=== PATIENT | male | born 1960 | race Caucasian/White ===

== ENCOUNTER 2020-11-18 07:51 | Outpatient (RCR) | payer BC, SELFPAY ==
[2020-11-20 10:13] LABS: MANUAL DIFF FLAG NO
[2020-11-20 10:24] LABS: Basophils Percent Auto 0.2 % (0-2); Eosinophils Absolute Auto 0.1 X10*3/uL (0.0-0.4); Eosinophils Percent Auto 1.5 % (0-4); Hematocrit 32.9 % (42-52); Hemoglobin 10.9 g/dl (14.0-18.0); Imm Gran Abs Auto 0.02 X10*3/uL (0.00-0.03); Imm Gran Pct Auto 0.3 % (0.0-0.4); Lymphocytes Absolute Auto 2.1 X10*3/uL (1.2-4.9); Lymphocytes Percent Auto 31.9 % (20-40); Mean Corpuscular HGB Conc 33.1 g/dl (31.0-36.0); Mean Corpuscular Hemoglobin 29.1 pg (27.0-33.0); Mean Platelet Volume 11.4 fL (9.4-12.4); Monocytes Absolute Auto 0.5 X10*3/uL (0.1-1.2); Monocytes Percent Auto 8.2 % (2-11); Neutrophils Absolute Auto 3.8 X10*3/uL (2.0-8.3); Neutrophils Percent Auto 57.9 % (45-73); Platelet Count 137 X10*3/uL (160-400); Red Blood Count 3.74 X10*6/uL (4.60-5.80); Red Cell Distribution Width 13.5 % (11.0-16.0); White Blood Count 6.6 X10*3/uL (4.8-10.8)
[2020-11-20 10:31] LABS: Estimated Average Glucose 160 mg/dL; Hemoglobin A1c % 7.2 %
[2020-11-20 10:59] LABS: Anion Gap 13 (12-20); Blood Urea Nitrogen 28 mg/dL (9-16); C Reactive Protein 0.17 mg/dL (< or = 0.50); Calcium 9.4 mg/dL (8.4-10.2); Carbon Dioxide 26 mmol/L (22-29); Chloride 105 mmol/L (96-108); Estimated Glomerular Filt Rate 44; Glucose Random 204 mg/dL (60-115); Potassium 4.7 mmol/L (3.3-5.1); Sodium 139 mmol/L (135-145)
[2020-11-20 11:16] LABS: Erythrocyte Sedimentation Rate 51 MM/HR (0-15)
== END 2020-12-26 12:14 | disposition home or self-care (01) ==
LOC: HO.WCC 07:51
PROVIDERS: Absent Provider Surgery; PCP Internal Medicine; Visit Provider Physician Assistant
DX: E10.621 Type 1 diabetes mellitus with foot ulcer (principal); L97.522 Non-pressure chronic ulcer of other part of left foot with fat layer exposed; E10.40 Type 1 diabetes mellitus with diabetic neuropathy, unspecified; E10.69 Type 1 diabetes mellitus with other specified complication; M86.472 Chronic osteomyelitis with draining sinus, left ankle and foot; I73.9 Peripheral vascular disease, unspecified; L53.9 Erythematous condition, unspecified; I10 Essential (primary) hypertension; Z87.891 Personal history of nicotine dependence; Z79.2 Long term (current) use of antibiotics; Z89.412 Acquired absence of left great toe
CPT/HCPCS: 11042; 36415; 80048; 83036; 84134; 85025; 85652; 86140; 99212

== ENCOUNTER 2020-12-01 07:56 | Outpatient (REF) | payer BC, SELFPAY ==
--- NOTE | ~2020-12-01 | MR_ITS ---
EXAMINATION: MRI FOOT WITHOUT AND WITH CONTRAST, LEFT CLINICAL INFORMATION: Nonpressure chronic ulcer, nonhealing wound. Patient reports nonhealing wound left 2nd digit, history of diabetes, great toe amputation 6 years ago. COMPARISON: None. TECHNIQUE: MRI of the left foot was performed before and after the intravenous administration of 10 mL of Gadavist on a high-field scanner. Motion artifact on multiple sequences degrade the images. FINDINGS: There is a focal area of skin irregularity/ulceration in the plantar aspect of the distal 2nd toe. There is diffuse underlying soft tissue edema and enhancement. There is no discrete fluid collection. Most of the distal phalanx of the 2nd toe is destroyed except for a small residual base. The base demonstrates low-T1 and low-T2 signal intensity consistent with sclerosis. There is no bone marrow edema in the 2nd proximal and middle phalanges. There has been prior resection of the great toe. There is diffuse fatty atrophy and some patchy edema involving the foot muscles, nonspecific, but a common finding in diabetic feet. MR/MR foot LT wo/w con IMPRESSION: Focal ulcer in the plantar aspect of the distal 2nd toe. Diffuse subcutaneous edema and enhancement involving the 2nd toe. Destruction of most of the 2nd distal phalanx with a residual small sclerotic base. This could be related to chronic osteomyelitis. There is no apparent bone marrow edema to suggest acute osteomyelitis.
== END 2020-12-01 07:57 | disposition home or self-care (01) ==
LOC: HO.MRI 07:56
PROVIDERS: PCP Internal Medicine; Visit Provider Surgery
DX: L97.522 Non-pressure chronic ulcer of other part of left foot with fat layer exposed (principal)
CPT/HCPCS: 73720; A9585

== ENCOUNTER → 2020-12-10 14:45 | Outpatient (BNVA) | payer BC, SELFPAY | PROVIDERS: Visit Provider Internal Medicine ==

== ENCOUNTER → 2020-12-16 10:53 | Outpatient (BNVA) | payer BC, SELFPAY | PROVIDERS: PCP Internal Medicine; Visit Provider Surgery Vascular Surgery ==

== ENCOUNTER 2020-12-16 11:36 | Outpatient (REF) | payer BC, SELFPAY ==
--- NOTE | ~2020-12-16 | US_ITS ---
EXAMINATION: US NONINVASIVE ASSESSMENT OF THE ARTERIES OF BOTH LOWER EXTREMITIES US HALEY COMPLETE Yfn Rizo MD CLINICAL INFORMATION: Peripheral vascular disease. TECHNIQUE: Bilateral lower extremity duplex ultrasound was performed with velocity measurements and waveform analysis in the common femoral arteries, profunda femoris arteries, proximal mid and distal superficial femoral arteries, popliteal arteries and tibial vessels. In addition, ankle-brachial indices were calculated bilaterally. This study was performed only at rest. COMPARISON: None FINDINGS: Velocities in cm/sec and phasicity as well as the presence of plaque are reported below. RIGHT LEG: HALEY: 0.77 A large amount of plaque is present in the common femoral and profunda origins consistent with tight stenoses as evidenced by elevated velocities below. Plaque noted throughout the SFA and popliteal also consistent with stenoses in areas with marked velocity elevation below. Multiphasic flow noted throughout with the exception of posterior tibial artery with monophasic flow. Common Femoral: 294 Profunda Femoris: 295 Proximal SFA: 201 Mid SFA: 96 Distal SFA: 342 Popliteal: 177 Tibial: 90 LEFT LEG: HALEY: 0.56 Plaque present in the common femoral artery with stenosis as evidenced by elevated velocities. SFA plaque is seen with the largest area of velocity elevation seen distally at 369 cm/s consistent with a stenosis. Multiphasic flow present throughout. Common Femoral: 244 Profunda Femoris: 204 Proximal SFA: 165 Mid SFA: 56 Distal SFA: 369 Popliteal: 135 Tibial: 66 US/US HALEY complete IMPRESSION: There is evidence of peripheral vascular disease bilaterally with decreased ABIs, more marked on the right. Multifocal areas of stenosis are present bilaterally in the common femoral arteries and profunda femoris arteries as well as the SFA and popliteal.
--- NOTE | ~2020-12-16 | US_ITS ---
EXAMINATION: US NONINVASIVE ASSESSMENT OF THE ARTERIES OF BOTH LOWER EXTREMITIES US HALEY COMPLETE Yfn Rizo MD CLINICAL INFORMATION: Peripheral vascular disease. TECHNIQUE: Bilateral lower extremity duplex ultrasound was performed with velocity measurements and waveform analysis in the common femoral arteries, profunda femoris arteries, proximal mid and distal superficial femoral arteries, popliteal arteries and tibial vessels. In addition, ankle-brachial indices were calculated bilaterally. This study was performed only at rest. COMPARISON: None FINDINGS: Velocities in cm/sec and phasicity as well as the presence of plaque are reported below. RIGHT LEG: HALEY: 0.77 A large amount of plaque is present in the common femoral and profunda origins consistent with tight stenoses as evidenced by elevated velocities below. Plaque noted throughout the SFA and popliteal also consistent with stenoses in areas with marked velocity elevation below. Multiphasic flow noted throughout with the exception of posterior tibial artery with monophasic flow. Common Femoral: 294 Profunda Femoris: 295 Proximal SFA: 201 Mid SFA: 96 Distal SFA: 342 Popliteal: 177 Tibial: 90 LEFT LEG: HALEY: 0.56 Plaque present in the common femoral artery with stenosis as evidenced by elevated velocities. SFA plaque is seen with the largest area of velocity elevation seen distally at 369 cm/s consistent with a stenosis. Multiphasic flow present throughout. Common Femoral: 244 Profunda Femoris: 204 Proximal SFA: 165 Mid SFA: 56 Distal SFA: 369 Popliteal: 135 Tibial: 66 US/US arterial duplex LE BI IMPRESSION: There is evidence of peripheral vascular disease bilaterally with decreased ABIs, more marked on the right. Multifocal areas of stenosis are present bilaterally in the common femoral arteries and profunda femoris arteries as well as the SFA and popliteal.
== END 2020-12-16 11:37 | disposition home or self-care (01) ==
LOC: HO.US 11:36
PROVIDERS: PCP Internal Medicine; Visit Provider Surgery Vascular Surgery
DX: I73.9 Peripheral vascular disease, unspecified (principal); L97.529 Non-pressure chronic ulcer of other part of left foot with unspecified severity
CPT/HCPCS: 93923; 93925

== ENCOUNTER → 2020-12-23 08:48 | Outpatient (BNVA) | payer BC, SELFPAY | PROVIDERS: PCP Internal Medicine; Visit Provider Surgery Vascular Surgery ==

== ENCOUNTER 2020-12-24 06:00 | Day surgery (SDC) | payer BC, SELFPAY ==
[2020-12-24] VITALS (9 sets, daily range): BP systolic 120–153; BP diastolic 51–65; PULSE 46–49; RESP 17–18; TEMP 36.6–36.9; O2SAT 94–98; BMI 34.2
[2020-12-24 06:34] LABS: MANUAL DIFF FLAG NO
[2020-12-24 06:52] LABS: Basophils Percent Auto 0.2 % (0-2); Eosinophils Absolute Auto 0.2 X10*3/uL (0.0-0.4); Eosinophils Percent Auto 2.9 % (0-4); Hematocrit 35.7 % (42-52); Hemoglobin 11.6 g/dl (14.0-18.0); Imm Gran Abs Auto 0.02 X10*3/uL (0.00-0.03); Imm Gran Pct Auto 0.3 % (0.0-0.4); Lymphocytes Absolute Auto 2.6 X10*3/uL (1.2-4.9); Lymphocytes Percent Auto 39.6 % (20-40); Mean Corpuscular HGB Conc 32.5 g/dl (31.0-36.0); Mean Corpuscular Hemoglobin 28.8 pg (27.0-33.0); Mean Corpuscular Volume 88.6 fL (80-98); Mean Platelet Volume 11.5 fL (9.4-12.4); Monocytes Absolute Auto 0.6 X10*3/uL (0.1-1.2); Monocytes Percent Auto 9.4 % (2-11); Neutrophils Absolute Auto 3.1 X10*3/uL (2.0-8.3); Neutrophils Percent Auto 47.6 % (45-73); Platelet Count 143 X10*3/uL (160-400); Red Blood Count 4.03 X10*6/uL (4.60-5.80); Red Cell Distribution Width 13.8 % (11.0-16.0); White Blood Count 6.5 X10*3/uL (4.8-10.8)
[2020-12-24 07:00] LABS: Anion Gap 16 (12-20); Blood Urea Nitrogen 33 mg/dL (9-16); Calcium 9.3 mg/dL (8.4-10.2); Carbon Dioxide 21 mmol/L (22-29); Chloride 106 mmol/L (96-108); Creatinine Clr Calc Pharmacy 71.3; Estimated Glomerular Filt Rate 52; Glucose Random 189 mg/dL (60-115); Potassium 4.9 mmol/L (3.3-5.1); Sodium 138 mmol/L (135-145)
[2020-12-24 07:03] LABS: INTERNATIONAL NORM RATIO 1.1 (0.9-1.1); Prothrombin Time 12.5 SEC (9.9-13.0)
[2020-12-24 07:06] LABS: Partial Thromboplastin Time 37.6 SEC (24.1-38.0)
--- NOTE | 2020-12-24 09:42 | P.OP_ITS ---
Operative Note Operative Note Date of Service: 12/24/20 Narrative: Angiogram report from [facility] Preoperative diagnosis: Atherosclerosis of left lower extremity with with nonhealing ulcer Postoperative diagnosis: Same Procedure: 1. Ultrasound-guided right common femoral access 2. Aortogram with bilaterallower extremity runoff 3. Left SFA atherectomy and plasty 4. Left popliteal plasty Surgeon:Smith Beckett M.D., FACS, RPVI Senior Director Creative Services:None Anesthesia: Local with moderate conscious sedation. Total intraservice moderate sedation time was 65 minutes. I monitored the patient's level of consciousness and physiologic status continuously throughout the procedure. Specimens:none Drains:none Estimated blood loss: Less than 10 ml Implant: [employer]tronic Impact DCB Indications: 60-year-old gentleman with a prior history of toe amputation and nonhealing left 2nd toe ulcer. It has gone on to develop osteomyelitis. Noninvasive testing demonstrated atherosclerotic disease. He now presents for endovascular intervention The patient has signed the informed consent after reviewing risks, complications, benefits, and alternatives previously discussed with the patient. The patient was given the opportunity to ask any additional questions or voice any concerns. All questions were answered to the patient's satisfaction. Procedure in detail: Patient was brought to the angiography suite prior to which a time-out was called for patient identification and site verification. Bilateral groins were prepped and draped in the standard surgical fashion. Under ultrasound guidance rightcommon femoral was punctured with micro puncture needle and wire. Subsequently a precision 4 Austrian sheath was then placed. Bentson wire was advanced to the level of the aorta. 4 Austrian Flush catheter was brought up and parked at the level of the renal arteries. Aortogram was then undertaken. Catheter was brought down to the level of the iliac bifurcatio n. Iliacs were subsequently imaged. Catheter was then brought in up and over to the leftside SFA. Runoff study was then undertaken. We recognized disease in the mid to distal left SFA. At this time 7000 units of systemic heparin was administered. A Glidewire Advantage was advanced through into the left SFA. An up and over 6 Austrian sheath was then placed. Once this was accomplished we used a trail Blazer true traverse the lesion. We confirmed true lumen through the trail Blazer catheter instilled with contrast. Once this was accomplished we then placed a spider wire down through the SFA. A Hawk 1 atherectomy device was used in the distal SFA. Approximately 5 unit directional passes were then undertaken. Once this was accomplished we removed the device and angiogram demonstrated residual stenosis. We then exchanged out for an Advantage 035 wire. Once this was accomplished we plasty the region with the atherectomy with a 6 x 40 drug coated balloon. This was brought into position in under 3 minutes and insufflated for a total of 3 minutes in duration. then turned our attention to the behind knee popliteal. We then brought in a 5 x 40 drug coated balloon. This was once again brought into position in under 3 minutes and insufflated for a total of 3 minutes in duration. Completion angiogram demonstrated excellent result. Catheter wire and sheath was brought back to the ipsilateral side. Through the sheath right lower extremity runoff study was then undertaken. We attempted a StarClose device closure. The device did not take. Direct pressure was held for approximately 15 minutes and a pressure dressing was then applied. At the end the case sponge instrument counts were correct. Patient tolerated the procedure well. Interpretation of films: 1. Ultrasound demonstrates appropriate femoral puncture. Image of which was saved. 2. Aortogram demonstrates appropriate caliber aorta. Minimal disease. Appropriate take-off of the renals. 3. Iliac images demonstrate stenosis at the aortic bifurcation small caliber vessels no flow-limiting stenosis. 4. Left Leg Common femoral artery: Patent normal caliber Profundus Femoris: No significant disease Superficial femoral artery: Smaller caliber high-grade stenosis at Bhargav's canal Popliteal artery (p1,p2,p3): High-grade stenosis at the behind knee popliteal Anterior tibial artery: No significant disease Peroneal artery: No significant disease Posterior tibial artery: No significant disease Dorsalis pedis/plantar arch: No significant disease 5. RightLeg Common femoral artery: Patent normal caliber Profundus Femoris: No significant disease Superficial femoral artery: Me minimal disease Popliteal artery (p1,p2,p3): No significant disease Anterior tibial artery: No significant disease Peroneal artery: No significant disease Posterior tibial artery: No significant disease Dorsalis pedis/plantar arch: No significant disease Conclusion: 1. Successful atherectomy and plasty of left SFA and popliteal 2. Anticoagulation status: Due to the use of a drug coated balloon 6 months of aspirin and Plavix will be required. This note is constructed using voice recognition software. While every effort has been made to ensure accuracy, package winder errors may have been included. Thank you for allowing me to participate in the care of your patient. Yours sincerely, Smith Beckett MD, FACS, R.P.V.I.
== END 2020-12-24 13:01 | disposition home or self-care (01) ==
PROVIDERS: PCP Internal Medicine; Visit Provider Surgery Vascular Surgery
DX: I70.245 Atherosclerosis of native arteries of left leg with ulceration of other part of foot (principal); L97.529 Non-pressure chronic ulcer of other part of left foot with unspecified severity
CPT/HCPCS: 36415; 37225; 76937; 80048; 85025; 85610; 85730; 99152; 99153; C1714; C1725; C1760; C1769; C1884; C1887; J2250; J3010; Q9967

== ENCOUNTER → 2021-01-08 14:20 | Outpatient (BNVA) | payer BC, SELFPAY | PROVIDERS: PCP Internal Medicine; Visit Provider Surgery Vascular Surgery ==

== ENCOUNTER 2021-04-13 12:20 | Outpatient (REF) | payer BC, SELFPAY ==
--- NOTE | ~2021-04-13 | US_ITS ---
EXAMINATION: US NONINVASIVE ASSESSMENT OF THE ARTERIES OF BOTH LOWER EXTREMITIES WITH ANKLE PRESSURE MEASUREMENTS, ANKLE BRACHIAL INDICES, PVR MEASUREMENTS AND BILATERAL LOWER EXTREMITY DUPLEX CLINICAL INFORMATION: Peripheral vascular disease. History of superficial femoral and popliteal artery stents. TECHNIQUE: Ankle pressure measurements, ankle brachial indices and PVR tracings were obtained of the lower extremity arterial system bilaterally. In addition, duplex Doppler techniques with wave form analysis and measurement of velocities in the common femoral, profunda femoral, superficial femoral, popliteal and tibial arteries was performed. The study was performed only at rest. COMPARISON: None FINDINGS: NONINVASIVE ASSESSMENT OF THE ARTERIES OF BOTH LOWER EXTREMITIES WITH ABIs: RIGHT LEG: Right ankle-brachial index: 0.72 PVR (ankle): Normal LEFT LEG: Ankle-brachial index: 0.82 PVR (ankle): Normal BILATERAL LOWER EXTREMITY DUPLEX ULTRASOUND: RIGHT LEG: Common femoral artery: 237 cm/s, Diastolic flow reversal: Yes Profunda femoris artery: 251 cm/s, Diastolic flow reversal: Yes Superficial femoral artery (proximal): 183 cm/s, Diastolic flow reversal: Yes Superficial femoral artery (mid): 96.2 cm/s, Diastolic flow reversal: Yes Superficial femoral artery (distal): 23.2 cm/s, Diastolic flow reversal: No Popliteal artery: 210 cm/s, Diastolic flow reversal: No Posterior tibial artery: 66.8 cm/s, Diastolic flow reversal: No Peroneal artery: 42 cm/s, Diastolic flow reversal: No LEFT LEG: Common femoral artery: 251 cm/s, Diastolic flow reversal: Yes Profunda femoris artery: 279 cm/s, Diastolic flow reversal: Yes Superficial femoral artery (proximal): 183 cm/s, Diastolic flow reversal: Yes Superficial femoral artery (mid): 145 cm/s, Diastolic flow reversal: Yes Superficial femoral artery (distal): 287 cm/s, Diastolic flow reversal: Yes Popliteal artery: 234 cm/s, Diastolic flow reversal: Yes Posterior tibial artery: 85 cm/s, Diastolic flow reversal: No Peroneal artery: 46 cm/s, Diastolic flow reversal: No US/US arterial duplex LE BI IMPRESSION: RIGHT LEG: HALEY 0.72 consistent with moderate peripheral arterial disease. Duplex ultrasound reveals elevated velocities within the common femoral artery and proximal profunda femoris artery consistent with a moderate hemodynamically significant stenosis. There is also focally elevated velocity within the distal SFA/popliteal artery consistent with a high-grade stenosis. LEFT LEG: HALEY 0.82 consistent with mild peripheral arterial disease. Duplex ultrasound reveals elevated velocities within the common femoral and proximal profunda femoris artery consistent with a moderate hemodynamically significant stenosis. Elevated velocities within the distal SFA and popliteal artery are consistent with a moderate hemodynamically significant stenosis. HALEY Reference: - >0.97-1.25 = normal - no significant arterial disease - 0.75-0.96 = mild peripheral arterial disease - 0.5-0.74 = moderate peripheral arterial disease - <0.50 = severe peripheral arterial disease
== END 2021-04-13 12:21 | disposition home or self-care (01) ==
LOC: HO.US 12:20
PROVIDERS: PCP Internal Medicine; Visit Provider Surgery Vascular Surgery
DX: I73.9 Peripheral vascular disease, unspecified (principal)
CPT/HCPCS: 93923; 93925

== ENCOUNTER → 2021-04-21 09:53 | Outpatient (BNVA) | payer BC, SELFPAY | PROVIDERS: PCP Internal Medicine; Visit Provider Surgery Vascular Surgery ==